=== PATIENT | male | born 1945 | race Caucasian/White ===

== ENCOUNTER 2016-10-31 07:50 | Outpatient (CLI) | payer MEDICARE, OTHER | END 2016-10-31 07:51 | disposition home or self-care (01) | DX: Z00.00 Encounter for general adult medical examination without abnormal findings (principal); Z90.5 Acquired absence of kidney; N18.2 Chronic kidney disease, stage 2 (mild); I12.9 Hypertensive chronic kidney disease with stage 1 through stage 4 chronic kidney disease, or unspecified chronic kidney disease; H53.2 Diplopia; E78.5 Hyperlipidemia, unspecified; R73.01 Impaired fasting glucose; G45.9 Transient cerebral ischemic attack, unspecified; E55.9 Vitamin D deficiency, unspecified ==

== ENCOUNTER 2017-11-01 08:29 | Outpatient (CLI) | payer MEDICARE, OTHER ==
[2017-11-01 12:08] LABS: BUN - BLOOD UREA NITROGEN 10 mg/dL (6-20); CALCIUM 8.8 mg/dL (8.5-10.3); CARBON DIOXIDE - CO2 24 mmol/L (21-32); CHLORIDE 103 mmol/L (101-111); CHOL/HDL RATIO 1.9 (<5.0); CHOLESTEROL 127 mg/dL; GFR - MDRD 73 (>89); GLUCOSE 99 mg/dL (70-100); HDL CHOLESTEROL 68 mg/dL; SODIUM 134 mmol/L (135-145)
[2017-11-01 12:34] LABS: LDL CHOLESTEROL,DIRECT 42 mg/dL; LDLD/HDL RATIO 0.6 (<3.6)
== END 2017-11-01 08:30 | disposition home or self-care (01) ==
LOC: LAB.F 08:29
PROVIDERS: ATTEND Internal Medicine
DX: Z00.00 Encounter for general adult medical examination without abnormal findings (principal); Z90.5 Acquired absence of kidney; E78.5 Hyperlipidemia, unspecified; N18.2 Chronic kidney disease, stage 2 (mild); R73.01 Impaired fasting glucose; N28.89 Other specified disorders of kidney and ureter; G45.9 Transient cerebral ischemic attack, unspecified; E55.9 Vitamin D deficiency, unspecified; I12.9 Hypertensive chronic kidney disease with stage 1 through stage 4 chronic kidney disease, or unspecified chronic kidney disease
CPT/HCPCS: 36415; 80048; 80061; 83721

== ENCOUNTER 2018-10-25 07:41 | Outpatient (CLI) | payer MEDICARE, OTHER ==
[2018-10-25 11:43] LABS: BUN - BLOOD UREA NITROGEN 16 mg/dL (6-20); CALCIUM 8.7 mg/dL (8.5-10.3); CARBON DIOXIDE - CO2 23 mmol/L (21-32); CHLORIDE 100 mmol/L (101-111); CHOL/HDL RATIO 1.7 (<5.0); CHOLESTEROL 126 mg/dL; CREATININE 1.1 mg/dL (0.6-1.2); GFR - MDRD 65 (>89); GLUCOSE 95 mg/dL (70-100); HDL CHOLESTEROL 74 mg/dL; SODIUM 133 mmol/L (135-145)
[2018-10-25 12:03] LABS: LDL CHOLESTEROL,DIRECT 43 mg/dL; LDLD/HDL RATIO 0.6 (<3.6)
== END 2018-10-25 07:42 | disposition home or self-care (01) ==
LOC: LAB.F 07:41
PROVIDERS: ATTEND Internal Medicine
DX: Z00.00 Encounter for general adult medical examination without abnormal findings (principal); I10 Essential (primary) hypertension; E78.5 Hyperlipidemia, unspecified; R73.01 Impaired fasting glucose; G45.9 Transient cerebral ischemic attack, unspecified; E55.9 Vitamin D deficiency, unspecified; Z90.5 Acquired absence of kidney
CPT/HCPCS: 36415; 80048; 80061; 83721

== ENCOUNTER 2020-01-16 07:38 | Outpatient (CLI) | payer MEDICARE, OTHER ==
[2020-01-16 15:44] LABS: BUN - BLOOD UREA NITROGEN 13 mg/dL (6-20); CALCIUM 8.5 mg/dL (8.5-10.3); CARBON DIOXIDE - CO2 23 mmol/L (21-32); CHLORIDE 101 mmol/L (101-111); CHOL/HDL RATIO 1.8 (<5.0); CHOLESTEROL 153 mg/dL; GLUCOSE 97 mg/dL (70-100); HDL CHOLESTEROL 83 mg/dL; SODIUM 132 mmol/L (135-145)
== END 2020-01-16 07:39 | disposition home or self-care (01) ==
LOC: LAB.S 07:38
PROVIDERS: ATTEND Internal Medicine
DX: Z00.00 Encounter for general adult medical examination without abnormal findings (principal); E78.5 Hyperlipidemia, unspecified; R73.01 Impaired fasting glucose; I10 Essential (primary) hypertension; G45.9 Transient cerebral ischemic attack, unspecified; E55.9 Vitamin D deficiency, unspecified
CPT/HCPCS: 36415; 80048; 80061; 82306; 83721

== ENCOUNTER 2021-02-15 07:45 | Outpatient (CLI) | payer MEDICARE, OTHER ==
[2021-02-15 16:35] LABS: BUN - BLOOD UREA NITROGEN 12 mg/dL (6-20); CALCIUM 8.7 mg/dL (8.5-10.3); CARBON DIOXIDE - CO2 24 mmol/L (21-32); CHLORIDE 97 mmol/L (101-111); CHOL/HDL RATIO 1.6 (<5.0); CHOLESTEROL 138 mg/dL; GFR - MDRD 73 (>89); GLUCOSE 103 mg/dL (70-100); HDL CHOLESTEROL 89 mg/dL; POTASSIUM 3.9 mmol/L (3.5-5.0); SODIUM 130 mmol/L (135-145); TRIGLYCERIDES 21 mg/dL
[2021-02-15 16:38] LABS: CREATININE,URINE 40.4 mg/dL; MICROALBUM/CREATININE RATIO,UR 12.4 ug/mg (<30.0); MICROALBUMIN,URINE 0.5 mg/dL (0-300.0)
== END 2021-02-15 07:46 | disposition home or self-care (01) ==
LOC: LAB.S 07:45
PROVIDERS: ATTEND Internal Medicine
DX: Z00.00 Encounter for general adult medical examination without abnormal findings (principal); Z90.5 Acquired absence of kidney; I10 Essential (primary) hypertension; Z86.010 Personal history of colon polyps; E78.5 Hyperlipidemia, unspecified; R73.01 Impaired fasting glucose; E66.9 Obesity, unspecified; Z85.528 Personal history of other malignant neoplasm of kidney; N28.89 Other specified disorders of kidney and ureter; K40.90 Unilateral inguinal hernia, without obstruction or gangrene, not specified as recurrent; G45.9 Transient cerebral ischemic attack, unspecified; E55.9 Vitamin D deficiency, unspecified
CPT/HCPCS: 36415; 80048; 80061; 82043; 82306; 82570; 83721

== ENCOUNTER 2021-08-24 06:26 | Outpatient (CLI) | payer MEDICARE, OTHER | END 2021-08-24 06:27 | disposition short-term general hospital (02) | LOC: EMS 06:26 | DX: R42 Dizziness and giddiness (principal); I10 Essential (primary) hypertension; R94.31 Abnormal electrocardiogram [ECG] [EKG] | CPT/HCPCS: A0425; A0429 ==

== ENCOUNTER 2021-10-18 07:50 | Outpatient (CLI) | payer MEDICARE, OTHER ==
[2021-10-18 15:16] LABS: CALCIUM 8.8 mg/dL (8.5-10.3); POTASSIUM 3.8 mmol/L (3.5-5.0)
== END 2021-10-18 07:51 | disposition home or self-care (01) ==
LOC: LAB.S 07:50
PROVIDERS: ATTEND Internal Medicine
DX: I10 Essential (primary) hypertension (principal)
CPT/HCPCS: 36415; 80048

== ENCOUNTER 2022-02-02 07:28 | Outpatient (CLI) | payer MEDICARE, OTHER ==
[2022-02-02 14:41] LABS: BASOPHILS % (AUTO) 0.6 %; EOSINOPHILS # (AUTO) 0.2 10^3/uL (0.0-0.7); EOSINOPHILS % (AUTO) 4.6 %; HCT - HEMATOCRIT 43.7 % (42.0-52.0); HGB - HEMOGLOBIN 14.7 g/dL (14.0-18.0); LYMPHOCYTES # (AUTO) 1.3 10^3/uL (1.5-3.5); LYMPHOCYTES % (AUTO) 24.5 %; MEAN CORPUSCULAR HEMOGLOBIN 30.4 pg (27.0-31.0); MEAN CORPUSCULAR HGB CONC 33.6 g/dL (32.0-36.0); MEAN CORPUSCULAR VOLUME 90.3 fL (80.0-94.0); MONOCYTES # (AUTO) 0.7 10^3/uL (0.0-1.0); MONOCYTES % (AUTO) 13.6 %; NEUTROPHILS # (AUTO) 2.9 10^3/uL (1.5-6.6); NEUTROPHILS % (AUTO) 56.3 %; PLT - PLATELET COUNT 181 10^3/uL (130-450); RED BLOOD COUNT 4.84 10^6/uL (4.70-6.10); RED CELL DISTRIBUTION WIDTH 12.8 % (12.0-15.0); WHITE BLOOD COUNT 5.2 x10^3/uL (4.8-10.8)
[2022-02-02 15:28] LABS: BUN - BLOOD UREA NITROGEN 11 mg/dL (6-20); CARBON DIOXIDE - CO2 25 mmol/L (21-32); CHLORIDE 102 mmol/L (101-111); CHOL/HDL RATIO 1.6 (<5.0); CHOLESTEROL 134 mg/dL; CREATININE 0.9 mg/dL (0.6-1.2); GFR - MDRD 82 (>89); GLUCOSE 104 mg/dL (70-100); HDL CHOLESTEROL 85 mg/dL; POTASSIUM 4.1 mmol/L (3.5-5.0); SODIUM 133 mmol/L (135-145); TRIGLYCERIDES 18 mg/dL
== END 2022-02-02 07:29 | disposition home or self-care (01) ==
LOC: LAB.S 07:28
PROVIDERS: ATTEND Internal Medicine
DX: E78.5 Hyperlipidemia, unspecified (principal); E87.1 Hypo-osmolality and hyponatremia; R73.01 Impaired fasting glucose; G45.9 Transient cerebral ischemic attack, unspecified
CPT/HCPCS: 36415; 80048; 80061; 82306; 83721; 85025

== ENCOUNTER 2023-03-08 07:50 | Outpatient (CLI) | payer MEDICARE, OTHER ==
[2023-03-08 15:18] LABS: BASOPHILS # (AUTO) 0.1 10^3/uL (0.0-0.1); EOSINOPHILS # (AUTO) 0.3 10^3/uL (0.0-0.7); EOSINOPHILS % (AUTO) 4.6 %; HCT - HEMATOCRIT 44.2 % (42.0-52.0); LYMPHOCYTES # (AUTO) 1.1 10^3/uL (1.5-3.5); LYMPHOCYTES % (AUTO) 18.7 %; MEAN CORPUSCULAR HEMOGLOBIN 30.9 pg (27.0-31.0); MEAN CORPUSCULAR HGB CONC 33.9 g/dL (32.0-36.0); MEAN CORPUSCULAR VOLUME 91.1 fL (80.0-94.0); MEAN PLATELET VOLUME 10.9 fL (7.4-11.4); MONOCYTES # (AUTO) 0.8 10^3/uL (0.0-1.0); MONOCYTES % (AUTO) 13.7 %; NEUTROPHILS # (AUTO) 3.8 10^3/uL (1.5-6.6); NEUTROPHILS % (AUTO) 61.5 %; PLT - PLATELET COUNT 241 10^3/uL (130-450); RED BLOOD COUNT 4.85 10^6/uL (4.70-6.10); RED CELL DISTRIBUTION WIDTH 11.7 % (12.0-15.0); WHITE BLOOD COUNT 6.1 x10^3/uL (4.8-10.8)
[2023-03-08 15:49] LABS: % IRON SATURATION 47 % (20-50); BUN - BLOOD UREA NITROGEN 15 mg/dL (6-20); CALCIUM 9.4 mg/dL (8.5-10.3); CARBON DIOXIDE - CO2 27 mmol/L (21-32); CHLORIDE 98 mmol/L (101-111); CHOL/HDL RATIO 1.8 (<5.0); CHOLESTEROL 116 mg/dL; CREATININE 1.1 mg/dL (0.6-1.3); GFR - MDRD 65 (>89); GLUCOSE 128 mg/dL (74-104); HDL CHOLESTEROL 63 mg/dL; IRON 134 ug/dL (50-212); LDL CHOLESTEROL,CALCULATED 45 mg/dL; LDL/HDL RATIO 0.7 (<3.6); SODIUM 132 mmol/L (135-145); TOTAL IRON BINDING CAPACITY 286 ug/dL (250-450); TRANSFERRIN 204 mg/dL (203-362); TRIGLYCERIDES 40 mg/dL (48-352); VLDL CHOLESTEROL 8 mg/dL
[2023-03-08 20:18] LABS: ESTIMATED AVERAGE GLUCOSE 105 mg/dL (70-100); HEMOGLOBIN A1c% 5.3 % (4.27-6.07)
== END 2023-03-08 07:51 | disposition home or self-care (01) ==
LOC: LAB.S 07:50
DX: I10 Essential (primary) hypertension (principal); E78.5 Hyperlipidemia, unspecified; R73.01 Impaired fasting glucose; E61.1 Iron deficiency
CPT/HCPCS: 36415; 80048; 80061; 83036; 83540; 83721; 84466; 85025